=== PATIENT | female | born 1975 | race Two or more races ===

== ENCOUNTER → 2020-05-11 07:00 | Outpatient (CLI) | payer OTHER ==
[~2020-05-11] VITALS: Ht 162.6 cm; Wt 68.0 kg
[~2020-05-11 07:00] MED LIST: IRON PO; MULTIVITAMINS1 EAC9 PO
== END | disposition home or self-care (01) ==
LOC: RAD 07:00 → SURH 05-14 11:15 → EDSTATUS 05-14 11:15 → RAD 06-29 07:20
PROVIDERS: ATTEND Obstetrics & Gynecology Gynecologic Oncology
DX: Z01.810 Encounter for preprocedural cardiovascular examination (principal); Z01.811 Encounter for preprocedural respiratory examination; R19.07 Generalized intra-abdominal and pelvic swelling, mass and lump; R79.1 Abnormal coagulation profile; N39.0 Urinary tract infection, site not specified; R97.1 Elevated cancer antigen 125 [CA 125]; D64.89 Other specified anemias; B34.2 Coronavirus infection, unspecified